=== PATIENT | female | born 1995 | race Two or more races ===

== ENCOUNTER → 2018-09-09 | Outpatient (CLI) | payer OTHER, SELFPAY ==
[2018-09-09 18:09] LABS: Chlamydia Trachomatis by PCR Negative (Negative); Neisserai gonorrhoeae by PCR Negative (Negative); Probe Check PASS; Sample Adequacy Control PASS; Specimen Processing Control PASS
[2018-09-13 11:31] LABS: HPV APTIMA, High Risk Negative (Negative)
[2018-09-13 12:23] LABS: HPV Reflexed? YES, CHARGE PATIENT
== END | disposition home or self-care (01) ==
LOC: LABSPEC 14:53
PROVIDERS: Visit Provider Obstetrics & Gynecology
DX: Z12.4 Encounter for screening for malignant neoplasm of cervix (principal)
CPT/HCPCS: 87491; 87591; 87624; 88175; G0145

== ENCOUNTER → 2025-01-01 | Outpatient (CLI) | payer BC, SELFPAY ==
--- NOTE | 2025-01-01 11:52 | RAD_ITS ---
PROCEDURE: SALPINGOGRAM 01/01/2025 REASON FOR EXAM: FEMALE INFERTILITY TECHNIQUE: Procedure Code: RADSAL Modality: DX Procedure: SALPINGOGRAM Fluoroscopy time: 28 seconds. Dose: 4.5 mGy. COMPARISON: None. RAD/Salpingogram IMPRESSION: Normal-appearing uterine contour, with normal-appearing bilateral fallopian tub es. Prompt free spillage is seen bilaterally. No abnormality is noted. Negative examination. Reading Location: [place] [id number]
--- NOTE | 2025-01-01 14:41 | OP.PCM_ITS ---
Operative Report (Standard) Operative Information Date of Procedure: 01/01/25 Pre-Operative Diagnosis: INFERTILIY Post-Operative Diagnosis: SAME Surgery/Procedure Performed: HYSTEROSALPINGOGRAM microbiological lab technician: No Type of Anesthesia: None Procedure Start Time: 12:18 Procedure Stop Time: 12:26 Select all DRAINS/GRAFTS/IMPLANTS that apply: None Estimated Blood Loss: 0 Specimen collected: No Description of surgery: A signed and timeout were performed. The patient was taken to the radiology suite where she was placed on the fluoroscopy table. A speculum was placed in the vagina and the cervix was cleansed with Betadine. The anterior lip was g rasped with a single-tooth tenaculum and the HSG catheter was placed after the cervical os was dilated slightly. The balloon was inflated and the radiopaque dye was injected slowly and steadily. The radiology was present and interpreted the images as the procedure was done. Once the cavity filled, and both tubes were noted to fill and spill well, the procedure was terminated. The instruments removed from the vagina and the vaginal sweep was completed by me. The patient was discharged home. Surgical Findings: NORMAL CERVIX AND VAGINA Complications Complications: No
== END | disposition home or self-care (01) ==
PROVIDERS: Referring Provider Obstetrics & Gynecology; Visit Provider Obstetrics & Gynecology
DX: N97.9 Female infertility, unspecified (principal)
CPT/HCPCS: 58340; 74740; Q9967